=== PATIENT | female | born 1980 | race Caucasian/White ===

== ENCOUNTER 2018-02-01 13:27 | Emergency (ER) | payer OTHER ==
[~2018-02-01] VITALS: Ht 170.2 cm; Wt 88.0 kg
[~2018-02-01 13:27] MED LIST: ROBA750T3 PO; Z.0.NO CURRENT MEDS
[2018-02-01 13:35] VITALS: BP 163/98; PULSE 75; RESP 18; TEMP 98.9; O2SAT 98
[2018-02-01] MEDS ORDERED: MORPHINE SULFATE 4 MG/ML INJ IV PUSH ONE (14:00)
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
[2018-02-01 15:15] VITALS: O2SAT 99
[2018-02-01] MEDS ORDERED: PROPOFOL 200 MG/20 ML AMP IV ONE (15:15)
[2018-02-01 15:23] VITALS: BP 127/86; PULSE 86; RESP 18; O2SAT 100
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
--- NOTE | 2018-02-01 16:35 | RADRPT ---
EXAM DATE/TIME: 02/01/2018 15:31 [facility] COMPARISON: SHOULDER LEFT LTD (2VWS), February 01, 2018, 14:07. INDICATIONS : Post reduction left shoulder. MEDICAL HISTORY : None. SURGICAL HISTORY : None. ENCOUNTER: Subsequent ACUITY: 1 day PAIN SCORE: 3/10 LOCATION: Left shoulder. FINDINGS: Two view examination of the left shoulder demonstrates successful reduction of the previously disloca jasson shoulder. No obvious fracture. CONCLUSION: 1. Successful reduction of the previously dislocated left shoulder. 2. No fracture. Jose R Scott MD on February 01, 2018 at 16:31 Board Certified Radiologist. This report was verified electronically.
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
[2018-02-01] MEDS ORDERED: IBUP-232 PO (17:20)
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
== END 2018-02-01 17:56 | disposition home or self-care (01) ==
LOC: NEPE 13:27
DX: S43.085A Other dislocation of left shoulder joint, initial encounter (principal); S09.90XA Unspecified injury of head, initial encounter; F17.210 Nicotine dependence, cigarettes, uncomplicated; V86.99XA Unspecified occupant of other special all-terrain or other off-road motor vehicle injured in nontraffic accident, initial encounter
CPT/HCPCS: 23650; 70450; 72125; 73030; 96374; 99152; 99285; J2270